=== PATIENT | male | born 1965 | race Caucasian/White ===

== ENCOUNTER 2017-03-13 18:16 | Observation (INO) | payer OTHER ==
[~2017-03-13] VITALS: Ht 182.9 cm; Wt 128.0 kg
[~2017-03-13 18:16] MED LIST: ACID REDUCER150 MG PO; ASPIRIN PO; BUTALBITAL PO; CAFFEINE PO; CYANOCOBAL1000 MCG/2 IM; LITE COAT ASPI325 M1 PO; NITROSTAT0.4 MG SL; SIMVASTATIN40 MG PO; TOPAMAX100 MG PO; TOPROL XL100 MG PO; VENLAFAXINE HCL75 M3 PO
[2017-03-13 20:00] LABS: HEMATOCRIT 44.6 % (38.0-50.0); MCH 31.1 PG (29.0-34.0); MEAN PLAT.VOLUME 9.9 uM^3 (9.0-12.4); PLATELET COUNT 292 K/uL (156-360); RBC DIS.WIDTH-CV 12.3 % (11.8-14.6); RBC DIS.WIDTH-SD 40.4 % (39-53); RED BLOOD COUNT 5.01 M/uL (4.00-5.50); WHITE BLOOD COUNT 14.1 K/uL (4.1-10.2)
[2017-03-13 20:20] LABS: CHLORIDE 111 mEq/L (99-109); POTASSIUM 3.3 mEq/L (3.7-5.4); SODIUM 140 mEq/L (136-147)
[2017-03-13 20:22] LABS: GLUCOSE 89 mg/dL (70-99)
[2017-03-13 20:23] LABS: ANION GAP 9 MEQ/L (2-14)
[2017-03-13 20:25] LABS: GFR ESTIMATE (CALCULATED) > 59 mL/min/
[2017-03-13 20:26] LABS: UREA NITROGEN (BUN) 10 mg/dL (9-23)
[2017-03-13 20:27] LABS: TROP-I INTERPRETATION NEGATIVE; TROPONIN-I 0.02 ng/mL (0.0-0.30)
[2017-03-13] MEDS ORDERED: LYRICA100 MG PO (22:04)
[2017-03-13] MEDS ORDERED: LEVO-T75 MCG PO (22:06)
[2017-03-14 00:59] VITALS: BP 168/77
[2017-03-14 02:12] LABS: INTERNAL CONTROL VALID? YES
[2017-03-14 04:17] LABS: TROP-I INTERPRETATION NEGATIVE; TROPONIN-I < 0.01 ng/mL (0.0-0.30)
[2017-03-14 04:35] VITALS: BP 138/70
[2017-03-14 08:11] LABS: HEMATOCRIT 43.1 % (38.0-50.0); MCH 31.2 PG (29.0-34.0); MCHC 34.1 G/DL (30.0-36.0); MCV 91.5 FL (86-99); MEAN PLAT.VOLUME 10.2 uM^3 (9.0-12.4); PLATELET COUNT 247 K/uL (156-360); RBC DIS.WIDTH-CV 12.3 % (11.8-14.6); RBC DIS.WIDTH-SD 41.5 % (39-53); RED BLOOD COUNT 4.71 M/uL (4.00-5.50); WHITE BLOOD COUNT 8.8 K/uL (4.1-10.2)
[2017-03-14 08:37] LABS: ALKALINE PHOSPHATASE 71 IU/L (3-129); ANION GAP 6 MEQ/L (2-14); CHLORIDE 110 MEQ/L (99-109); GFR ESTIMATE (CALCULATED) > 59 mL/min/; GLUCOSE 95 mg/dL (70-99); POTASSIUM 4.2 MEQ/L (3.7-5.4); SAMPLE HEMOLYSIS CHECK 0; SAMPLE ICTERIC CHECK 0; SAMPLE LIPEMIA CHECK 0; SODIUM 140 MEQ/L (136-147); TOTAL BILIRUBIN 0.5 MG/DL (0.0-1.0); UREA NITROGEN (BUN) 9 mg/dL (9-23)
[2017-03-14 08:41] LABS: TROP-I INTERPRETATION NEGATIVE; TROPONIN-I < 0.01 ng/mL (0.0-0.30)
[2017-03-14 08:55] VITALS: BP 130/62
== END 2017-03-14 11:57 | disposition home or self-care (01) ==
LOC: EME 18:16 → EDOF 23:37 → 5WEST 03-14 00:38
PROVIDERS: Internal Medicine
DX: I20.8 Other forms of angina pectoris (principal); R20.0 Anesthesia of skin; I25.2 Old myocardial infarction; E87.6 Hypokalemia; J44.9 Chronic obstructive pulmonary disease, unspecified; G47.33 Obstructive sleep apnea (adult) (pediatric); R19.7 Diarrhea, unspecified; R11.2 Nausea with vomiting, unspecified; E78.00 Pure hypercholesterolemia, unspecified; I10 Essential (primary) hypertension; F17.200 Nicotine dependence, unspecified, uncomplicated; Z95.5 Presence of coronary angioplasty implant and graft; Z95.810 Presence of automatic (implantable) cardiac defibrillator; Z79.82 Long term (current) use of aspirin; Z88.5 Allergy status to narcotic agent
CPT/HCPCS: 71020; 80048; 80053; 83630; 84484; 85027; 87177; 87329; 87493; 93005; 99281; 99284; G0378; J1644; J7030; S0028